=== PATIENT | female | born 2000 | race Asian ===

== ENCOUNTER 2022-05-23 14:51 | Emergency (ER) | payer MEDICAID ==
[~2022-05-23] VITALS: Ht 157.5 cm; Wt 77.1 kg
--- NOTE | 2022-05-23 16:10 | NUR ---
RECEIVED PT 22 YRS FEMALE C/O PAIN ON LT WRIST NO SWALLEN TENDER TO TOUCH
--- NOTE | 2022-05-23 16:35 | NUR ---
SEEN BY DR. ARGUETA
--- NOTE | 2022-05-23 16:45 | NUR ---
X-RAY DONE ON RT WRIST
[2022-05-23] MEDS ORDERED: IBUPROFEN 600 MG TABLET ONE (17:09)
[2022-05-23] MEDS: IBUPROFEN 600 MG TABLET PO ONE (17:09)
--- NOTE | 2022-05-23 17:25 | NUR ---
Patient discharged to home in stable condition. Written and verbal after care instructions given. Patient verbalizes understanding of instruction.
[2022-05-23 17:53] VITALS: BP 140/83
== END 2022-05-23 17:53 | disposition home or self-care (01) ==
LOC: ER 14:51
DX: M25.531 Pain in right wrist (principal)
CPT/HCPCS: 73110